=== PATIENT | male | born 1955 | race Caucasian/White ===

== ENCOUNTER → 2016-07-25 | Outpatient (CLI) | payer MEDICARE, MEDICAID ==
[~2016-07-25] MED LIST: ASPI-558 PO; FURO20TA4 PO; ISOS30TA6 PO; LINA290C PO; METO25TA6 PO; NITR0.4T PO; POTA20TA10 PO; SIMV20TA6 PO
--- NOTE | 2016-07-25 13:10 | DI ---
Indication: ITS.REASON: R07.2 Precordial pain Procedure: CHEST, PA LATERAL: Encounter: Initial Comparison: 01/04/2016, 11/18/2015 Technique: PA and lateral radiographs of the chest were obtained. Findings: Life support devices: Left pectoral dual-chamber pacer device in place. Lungs and airways: Normal lung volumes. Left greater than right basilar airspace opacities. Normal pulmonary vasculature. Pleura: Small left greater than right pleural effusions. No pneumothorax. Heart and mediastinum: Cardiomegaly. Prosthetic aortic valve. Osseous structures and soft tissues: No acute osseous abnormality is seen. Postoperative changes of median sternotomy. Degenerative arthrosis of the AC joints. Degenerative disc disease of the thoracic spine. Partially visualized postoperative changes of lumbar fusion. Impression: Small left greater than right pleural effusions with associated also left greater than right basilar relaxation atelectasis. .
== END ==
LOC: IMA 12:34
PROVIDERS: ATTEND Internal Medicine Cardiovascular Disease
DX: J90 Pleural effusion, not elsewhere classified (principal); J98.11 Atelectasis; R07.2 Precordial pain

== ENCOUNTER 2016-08-27 23:51 | Emergency (ER) | payer MEDICARE, MEDICAID ==
[~2016-08-27] VITALS: Ht 160 cm; Wt 83.0 kg
[2016-08-27 23:55] VITALS: TEMP 97.4; Ht 160 cm; Wt 83.0 kg
--- OUTSIDE RECORDS SUMMARY | 2016-08-27 23:55 | XMS REPORT | Continuity of Care Document ---
Author Author [facility] Organization [facility] Address Unknown Phone Unavailable Support Name Relationship Address Phone SAHRA JENKINS MD Caregiver [address] [place] [address] Unavailable Obdulia ANDREWS MD Caregiver [address] [place] [address] Unavailable NAGA, JEAN Next Of Kin [address] [place] [address] C Insurance Providers Guarantor Afua Archuleta Address [address] [place] [address] SG Email DENIED 16 [facility] [employer] Policy Number [id number] Subscriber's Name CenterviewArsalan geigerarin Thomas Relationship 18 Self Effective Date 16 Expiration Date 16 Payer Medicare Policy Number [id number] Subscriber's Name Afua Archuleta William Relationship 18 Self Effective Date 90 Advance Directives Directive Response Recorded Date/Time Ordered Resuscitation Status Full Code 06/18/16 9:00am Resuscitation Documents on File No 06/18/16 1:20pm DPOA for Healthcare Only No 06/18/16 1:20pm Living Will Yes 06/18/16 1:20pm Problems Active Problems Medical Problem Onset Date Status Chest pain, rule out acute myocardial infarction Unknown Acute Coronary artery disease involving autologous vein bypass graft Unknown Chronic Hypertension Unknown Chronic Mixed hyperlipidemia Unknown Chronic Patient left without being seen Unknown Acute Precordial chest pain Unknown Acute Presence of permanent cardiac pacemaker Unknown Chronic Surgical Problem Onset Date Status Aortic valve replaced Unknown Chronic Medications Current Home Medications Medication Dose Units Route Directions Days Qty Instructions Start Date Aspirin (Aspir 81) 81 Mg Tablet. 81 Mg Oral Daily 08/10/13 Furosemide 20 Mg Tablet 1 Tab Oral Twice A Day 06/18/16 Isosorbide Mononitrate (Isosorbide Mononitrate Er) 30 Mg Tab.er.24h 30 Mg Oral Daily 12/13/14 Linaclotide (Linzess) 290 Mcg Capsule 290 Mcg Oral Before Breakfast 10/07/14 Metoprolol Tartrate 25 Mg Tablet 25 Mg Oral Twice A Day 11/20/14 Nitroglycerin (Nitrostat) 0.4 Mg Tablet 0.4 Mg Oral Every 5 Minutes X 3 12/13/14 Potassium Chloride (Klor-Con M20) 20 Meq Tablet 1 Tab Oral Daily 06/18/16 Simvastatin 20 Mg Tablet 20 Mg Oral Daily 11/20/14 Past Home Medications Medication Directions Ordered Status Bp Med , 01/04/13 Discontinued Cholesterol Med , 01/04/13 Discontinued Lortab , 01/04/13 Discontinued Social History Social History Problem Response Recorded Date/Time Onset Date Status Reason for Hospitalization heart cath 06/18/2016 6:52pm Not Applicable Not Applicable Chewing Tobacco Status Yes 08/10/2013 11:19am Not Applicable Not Applicable Hx Substance Use No 06/18/2016 1:23pm Not Applicable Not Applicable Hx Alcohol Use N RECOVERING ALCOHOLIC 06/18/2016 1:23pm Not Applicable Not Applicable Has the pt used tobacco in the last 12 months No 06/18/2016 1:23pm Not Applicable Not Applicable Tobacco Usage none 11/28/2015 1:09pm Not Applicable Not Applicable Query Response Start Date Stop Date Smoking Status Never smoker Hospital Discharge Instructions Instructions: Care Instructions: I was in the hospital because (patient own words): "HEART CATH" Discharge Diet: Resume heart healthy diet Discharge Activity: Limit activity for 2 days. No lifting more than 10 pounds, no pushing or pulling for 1 week. Follow Up Appointments: Follow up with Dr. Jenkins on: 07/12/16 at 1:50 Pending Lab / Results: No Pending Lab Patient Instructions: Do not drive, operate machinery or drink alcohol for 2 days. New prescriptions: Expected Signs/Symptoms: brusing and tenderness at site Notify Physician If: Site is bleeding, abnormal drainage, increased pain or fever of 101.5 or more. During Business Hours:: Please call the physician's office at [phone] After Business Hours:: Please call [phone] and have the aegis console operator track page the physician. Pain Management/Treatment: OTC pain medications if needed Pain Scale Utilized to Educate Patient: 0-10 Pain Scale Wound/Incision Care: Keep site clean and dry. No tub baths or swimming for 1 week. You may shower. Condition at time of discharge: Good Plan of Care Discharge Date 06/18/16 8:42pm Instructions/Education Provided [facility] [place] Prescriptions See Medication Section Functional Status Query Response Date Recorded Mobility Status Ambulatory June 18, 2016 1:36pm Assistive Devices None June 18, 2016 1:36pm Activity Limitations None June 18, 2016 1:36pm Feeding Ability Independent June 18, 2016 1:36pm Toileting Ability Independent June 18, 2016 1:36pm Grooming Ability Independent June 18, 2016 1:36pm Dressing Ability Independent June 18, 2016 1:36pm Driving Ability Independent June 18, 2016 1:36pm Housework Ability Independent June 18, 2016 1:36pm Meal Preparation Ability Independent June 18, 2016 1:36pm Stair Climbing Ability Independent June 18, 2016 1:36pm Ability to complete ADL's impeded by No change June 18, 2016 1:36pm Cognitive/Perceptual Impairments Impaired vision June 18, 2016 1:36pm Visual Assistive Devices Glasses June 18, 2016 1:36pm Preferred Method of Learning Reading Listening Hands on June 18, 2016 1:36pm Allergies, Adverse Reactions, Alerts Allergen Type Severity Reaction Status Last Updated Morphine Adverse Reaction Unknown nauseated Active 06/18/16 Immunizations Query Response on File Recorded Date/Time Hx Influenza Vaccination Y 201506/18/16 1:23pm Hx Pneumococcal Vaccination Y 201506/18/16 1:23pm Hx Influenza Vaccination Y 201506/18/16 1:23pm DTaP Vaccine History UNK 11/18/15 12:11pm Influenza Vaccine Hx 06/18/16 1:39pm Vital Signs Acute Vital Signs Vital Response Date/Time Temperature (Fahrenheit) 98.4 deg F (96.8 - 99.1) 06/18/2016 8:24pm Temperature (Calculated Celsius) 36.04247 degrees C (36.0 - 37.3) 06/18/2016 8:24pm Temperature Source Oral 06/18/2016 8:24pm Pulse Rate (adult) 71 bpm (60 - 100) 06/18/2016 8:24pm Respiratory Rate 16 breaths/min (10 - 20) 06/18/2016 8:24pm O2 Sat by Pulse Oximetry 98 % (90 - 100) 06/18/2016 8:24pm Oxygen Delivery Method Room Air 06/18/2016 8:24pm Oxygen Delivery Method Room Air 06/18/2016 1:36pm Blood Pressure 142/86 mm Hg 06/18/2016 8:24pm Blood Pressure Source Automatic Cuff 06/18/2016 8:24pm Height (Feet) 5 feet 06/18/2016 1:16pm Height (Inches) 3.00 inches 06/18/2016 1:16pm Weight (Kilograms) 85.200 kg 06/18/2016 1:16pm Body Mass Index (BMI) 33.3 06/18/2016 1:16pm Results Laboratory Results Test Name Result Units Flags Reference Collection Date/Time Result Date/ Time Comments White Blood Count 4.6 T/MM3 4.5-11.0 06/18/2016 1:30pm 06/18/2016 1: 37pm Red Blood Count 5.18 M/MM3 4.50-5.90 06/18/2016 1:30pm 06/18/2016 1: 37pm Hemoglobin 16.0 GM/DL 13.5-17.5 06/18/2016 1:30pm 06/18/2016 1:37pm Hematocrit 47.1 % 41-53 06/18/2016 1:30pm 06/18/2016 1:37pm Mean Corpuscular Volume 90.9 UM3 80-100 06/18/2016 1:30pm 06/18/2016 1: 37pm Mean Corpuscular Hemoglobin 30.9 UUG 26-34 06/18/2016 1:30pm 2016 1:37pm Mean Corpuscular Hemoglobin Concent 34.0 GM/DL 31-37 06/18/2016 1:30pm 06/18/2016 1:37pm RDW Standard Deviation 40.8 FL 36.9-50.2 06/18/2016 1:30pm 06/18/2016 1 :37pm Platelet Count 121 T/MM3 L 130-400 06/18/2016 1:30pm 06/18/2016 1:37pm Mean Platelet Volume 9.4 UM3 9.4-12.4 06/18/2016 1:30pm 06/18/2016 1: 37pm Neutrophils (%) (Auto) 53.0 % 33-66 06/18/2016 1:30pm 06/18/2016 1: 37pm Lymphocytes (%) (Auto) 33.4 % 23-45 06/18/2016 1:30pm 06/18/2016 1: 37pm Monocytes (%) (Auto) 7.9 % 0-9.0 06/18/2016 1:30pm 06/18/2016 1:37pm Eosinophils (%) (Auto) 4.4 % H 0-4 06/18/2016 1:30pm 06/18/2016 1:37pm Basophils (%) (Auto) 1.1 % 0-2 06/18/2016 1:30pm 06/18/2016 1:37pm Immature Granulocyte % (Auto) 0.2 % 0.0-0.5 06/18/2016 1:30pm 2016 1:37pm Absolute Neutrophils (auto) 2.4 T/MM3 1.8-7.7 06/18/2016 1:30pm 2016 1:37pm Absolute Lymphocytes (auto) 1.5 T/MM3 1-4.8 06/18/2016 1:30pm 2016 1:37pm Absolute Monocytes (auto) 0.4 T/MM3 0-0.8 06/18/2016 1:30pm 06/18/2016 1:37pm Absolute Eosinophils (auto) 0.2 T/MM3 0-0.5 06/18/2016 1:30pm 2016 1:37pm Absolute Basophils (auto) 0.1 T/MM3 0-0.2 06/18/2016 1:30pm 06/18/2016 1:37pm Absolute Immature Granulocyte (auto 0.01 T/MM3 0.00-0.03 06/18/2016 1: 30pm 06/18/2016 1:37pm Icterus Index < 2 0-7 06/18/2016 1:30pm 06/18/2016 1:47pm Chemistry Specimen Hemolysis < 15 0-25 06/18/2016 1:30pm 06/18/2016 1 :47pm 0-25: Specimen Exhibited No Hemolysis. Turbidity < 20 0-20 06/18/2016 1:30pm 06/18/2016 1:47pm Sodium Level 139 MEQ/L 134-144 06/18/2016 1:30pm 06/18/2016 1:47pm Potassium Level 4.1 MEQ/L 3.6-5 06/18/2016 1:30pm 06/18/2016 1:47pm Chloride Level 105 MEQ/L 98-107 06/18/2016 1:30pm 06/18/2016 1:47pm Carbon Dioxide Level 24 MEQ/L 22-30 06/18/2016 1:30pm 06/18/2016 1: 47pm Anion Gap 10 MEQ/L 5-15 06/18/2016 1:30pm 06/18/2016 1:47pm Blood Urea Nitrogen 15.0 MG/DL 9-20 06/18/2016 1:30pm 06/18/2016 1: 47pm Creatinine 0.8 MG/DL 0.8-1.5 06/18/2016 1:30pm 06/18/2016 1:47pm BUN/Creatinine Ratio 19 RATIO 6-26 06/18/2016 1:30pm 06/18/2016 1:47pm Glomerular Filtration Rate Calc 99 06/18/2016 1:30pm 06/18/2016 1: 47pm Glucose Level 90 MG/DL 75-110 06/18/2016 1:30pm 06/18/2016 1:47pm Calculated Osmolality 269 MOSM/KG 261-280 06/18/2016 1:30pm 06/18/2016 1:47pm Calcium Level 9.4 MG/DL 8.4-10.2 06/18/2016 1:30pm 06/18/2016 1:47pm Arterial Blood pH 7.367 7.350-7.450 06/18/2016 5:05pm 06/18/2016 5: 10pm Arterial Blood Partial Pressure CO2 40 MMHG 34-45 06/18/2016 5:05pm 10/2016 5:10pm Arterial Blood pO2 at Patient Temp 73 MMHG L 80-100 06/18/2016 5:05pm 5:10pm Arterial Blood HCO3 23 MEQ/L 22-26 06/18/2016 5:05pm 06/18/2016 5:10pm Arterial Blood Total CO2 24 MEQ/L 23-27 06/18/2016 5:05pm 06/18/2016 5: 10pm Arterial Blood Base Excess -2.0 MMOL/L -2.0-2.0 06/18/2016 5:05pm 06/18 5:10pm Arterial Blood Oxygen Saturation 94.0 % L 95.0-98.0 06/18/2016 5:05pm 5:10pm Venous Blood pH 7.336 7.31-7.41 06/18/2016 5:05pm 06/18/2016 5:10pm Venous Blood Partial Pressure CO2 46.3 MMHG 40-52 06/18/2016 5:05pm 10/2016 5:10pm Venous Blood Partial Pressure O2 37 MMHG L 40-52 06/18/2016 5:05pm 06/18 5:10pm Venous Blood HCO3 25 MEQ/L 22-26 06/18/2016 5:05pm 06/18/2016 5:10pm Venous Blood Total Carbon Dioxide 26 MEQ/L 06/18/2016 5:05pm 2016 5:10pm Venous Blood Base Excess -1.0 MMOL/L -2.0-2.0 06/18/2016 5:05pm 2016 5:10pm Venous Blood Oxygen Saturation 67.0 % 06/18/2016 5:05pm 06/18/2016 5: 10pm Procedures No known history of procedures. Encounters Encounter Location Arrival/Admit Date Discharge/Depart Date Attending Provider Departed [facility] 06/18/16 1:06pm 06/18/16 8:42pm SAHRA JENKINS MD
--- OUTSIDE RECORDS SUMMARY | 2016-08-27 23:55 | XMS REPORT | Summary of Care ---
Author Organization Unknown Address Unknown Phone Unavailable Care Team Providers Care Mill Operator Name Role Phone Mimi Paul, Foster Unavailable Unavailable Radha Cotto M.D. 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: Active Back Pain Status: Active Heart Rate Is Slow Status: Active Diarrhea (787.91, R19.7) Status: Active Abdominal pain (789.00, R10.9) Status: Active Abdominal pain, epigastric (789.06, R10.13) Status: Active Dysuria (788.1, R30.0) Status: Active Fainting (780.2, R55) Status: Active Reflux esophagitis (530.11, K21.0) Status: Active Hypogonadism, male (257.2, E29.1) Status: Active Allergic rhinitis (477.9, J30.9) Status: Active Hypertension (401.9, I10) Status: Active Sinus bradycardia (427.89, R00.1) Status: Active Atypical chest pain (786.59, R07.89) Status: Active Gastritis, Helicobacter pylori (535.10, B96.81) Status: Active Cholecystitis (575.10, K81.9) Status: Active Gastroparesis (536.3, K31.84) Status: Active Bipolar disorder (296.80, F31.9) Status: Active Encounter for screening for malignant neoplasm of colon (V76.51, Z12.11) Status: Active Hepatitis B carrier (V02.61, Z22.51) Status: Active Constipation (564.00, K59.00) Status: Active Cervical radiculopathy (723.4, M54.12) Status: Active Bloating (787.3, R14.0) Status: Active Abnormal liver function test (790.6, R79.89) Status: Active Medications Name Dates Details Hydrocodone-Acetaminophen 10-500 MG TABS TAKE 1 TABLET BY MOUTH EVERY 4 HOURS NEEDED FOR PAIN.*MAX 6 PER DAYMAY FILL ON OR AFTER 11/19/12* Quantity: 180 Foster Le M.D.* Started 11-Dec-2010 ActiveFerrous Sulfate 325 (65 Fe) MG Oral Tablet Take 1 tablet twice daily * Quantity: 30 Refills: 0 Foster Le M.D.* Started 08-Jan-2011 ActiveAspir-81 81 MG Oral Tablet Delayed Release TAKE 1 TABLET EVERY DAY * Quantity: 30 Refills: 0 Foster Le M.D.* Started 08-Jan-2011 ActiveLisinopril 10 MG Oral Tablet TAKE 1 TABLET DAILY. * Quantity: 30 Refills: 0 Foster Le M.D.* Started 30-Mar-2011 ActiveEscitalopram Oxalate 10 MG Oral Tablet TAKE 1 TABLET DAILY. * Quantity: 30 Refills: 0 Foster Le M.D.* Started 30-Mar-2011 ActiveFenofibrate 160 MG Oral Tablet TAKE ONE TABLET BY MOUTH AT BEDTIME * Quantity: 30 Refills: 0 Foster Le M.D.* Started 28-May-2011 ActiveIsosorbide Mononitrate ER 30 MG Oral Tablet Extended Release 24 Hour TAKE 1 TABLET ONCE DAILY. * Quantity: 30 Refills: 0 Foster Le M.D.* Started 28-May-2011 ActiveOxyCONTIN 30 MG TB12 TAKE 1 BY MOUTH EVERY 12 HOURS.*MUST LAST 30 DAYSMAY FILL ON OR AFTER 11/28/12* * Quantity: 60 Refills: 0 Foster Le M.D.* Started ActiveMetoprolol Succinate ER 50 MG Oral Tablet Extended Release 24 Hour Take 1 tablet daily * Quantity: 30 Refills: 0 Foster Le M.D.* Started 07-Apr-2012 ActiveMetoclopramide HCl - 10 MG Oral Tablet TAKE 1 TABLET 30 MINUTES BEFORE MEALS AND AT BEDTIME. * Quantity: 120 Refills: 0 Radha Cotto M.D.* Started 30-Sep-2012 Active Allergies and Adverse Reactions Name Dates Details Morphine Derivatives Status: Active Procedures Procedure Dates Details History of Tonsillectomy History of Hernia Repair History of Shoulder Surgery History of Surgery Vas Deferens Vasectomy History of Back Surgery History of Complete Colonoscopy History of Heart Catheterization - Left Completed:02-Aug-2010 History of Gastroscopy With Biopsy Completed:10-Jan-2011 History of Complete Colonoscopy Completed:23-Jan-2011 History of ERCP With Insertion Of Tube Into Bile / Pancreatic Duct Completed:30-Jan-2011 History of ERCP With Endoscopic Sphincterotomy Completed:30-Jan-2011 History of ERCP With Balloon Dilation Of Ampulla/Biliary/Pancr Duct(S) Completed:30-Jan-2011 History of Laparoscopic Cholecystectomy With Cholangiography Completed:Jan-2011 History of Colonoscopy For Forceps Biopsy Completed:26-Mar-2012 History of Gastroscopy With Biopsy Completed:28-Mar-2012 Procedures not documented Immunization Name Dates Details Influenza Lot #: [id number] Administered on:04-Feb-2012 Pneumo (Pneumovax) Lot #: [id number] Administered on:04-Feb-2012 Family History Unknown Family Member* Name Dates Details Family history of Diabetes Mellitus (V18.0) Comments: Family History Status: Active Family history of Hypertension (V17.49) Comments: Family History Status: Active Family history of Stroke Syndrome (V17.1) Comments: Family History Status: Active Family history of Acute Myocardial Infarction (V17.3) Comments: Family History Status: Active Family history of Reported Family History Of Kidney Disease Comments: Family History Status: Active Family history of Epilepsy Comments: Family History Status: Active Family history of Prostate Cancer (V16.42) Comments: Family History Status: Active Family history of Reported Family History Of Alcoholism Comments: Family History Status: Active Social History Smoking Status* Unknown if ever smoked Vital Signs Date Test Result Details No Known Vitals to report Results Date Description Value Details Results not documented Plan of Care Planned Observations* Name Dates Details Planned Goals not documented Goal Planned Encounters* Appointment; Provider: Miller Sosa On 07-Feb-2011 07:30 * Appointment; Provider: Mayur Rizzo On 02-Aug-2010 11:00 Instructions * Instructions not documented Encounters Appointment; Foster Le Encounter Diagnosis: Problem not documented On 09:45 Appointment; Diego Perez Encounter Diagnosis: Problem not documented On 10:30 Appointment; Foster Le Encounter Diagnosis: Problem not documented On 12:15 Appointment; Radha Cotto Encounter Diagnosis: Problem not documented On 24-Sep-2012 08:45 Appointment; Foster Le Encounter Diagnosis: Problem not documented On 22-Sep-2012 09:45 Appointment; Foster Le Encounter Diagnosis: Problem not documented On 25-Aug-2012 12:15
--- OUTSIDE RECORDS SUMMARY | 2016-08-27 23:55 | XMS REPORT | Referral Summary ---
Author Author [facility] Organization [facility] Address Unknown Phone Unavailable Care Team Providers Care Mint Wafer Depositor Name Role Phone Beto Magdiel Primary Care Physician [phone] Encounter VC Date(s): 06/26/16 - 06/26/16 [facility] [address] [place] [address] [phone] Discharge Disposition: 01-Home or Self Care Attending Physician: Bi Rizvi MD Vital Signs Most recent to 1 oldest [Reference Range]: Temperature Oral 36.4 degC [35.8-37.3 degC] (06/26/16 8:28 AM) Peripheral Pulse 61 bpm Rate [60-100 bpm] (06/26/16 8:28 AM) Respiratory Rate 18 br/min [14-20 br/min] (06/26/16 8:28 AM) Blood Pressure 147/79 mmHg [90-140/60-90 mmHg] *HI* (06/26/16 8:28 AM) SpO2 97 % (06/26/16 8:28 AM) Problem List Condition Effective Dates Status Health Status Informant ETOH Active abuse(Confirmed) Anxiety(Confirmed) Active CAD (coronary artery Active disease)(Confirmed) Diverticulosis(Confi Active rmed) Hemorrhoids(Confirme Active d) Liver Active disease(Confirmed) Hypercholesteremia(C Active onfirmed) Hypertension(Confirm Active ed) Arthritis(Confirmed) Active Depression(Confirmed Active ) Obesity(Confirmed) Active patient Allergies, Adverse Reactions, Alerts Substance Reaction Severity Status morphine nausea Medium Active Medications aspirin 81 mg oral tablet 81 mg 1 tabs, Oral, Daily, 0 Refill(s) Start Date: 04/03/16 Status: Ordered isosorbide dinitrate 30 mg oral tablet 30 mg 1 tabs, Oral, Daily, 0 Refill(s) Start Date: 04/03/16 Status: Ordered Lasix 40 mg oral tablet 40 mg 1 tabs, Oral, Daily, 0 Refill(s) Start Date: 04/03/16 Status: Ordered Linzess 145 mcg, Oral, Daily, 0 Refill(s) Start Date: 04/03/16 Status: Ordered metoprolol tartrate 25 mg oral tablet 25 mg 1 tabs, Oral, BID, 0 Refill(s) Start Date: 04/03/16 Status: Ordered potassium chloride 20 mEq oral tablet, extended release 20 mEq 1 tabs, Oral, Daily, 0 Refill(s) Start Date: 04/03/16 Status: Ordered simvastatin 20 mg oral tablet 20 mg 1 tabs, Oral, Daily, 0 Refill(s) Start Date: 04/03/16 Status: Ordered Results No data available for this section Immunizations Given and Recorded Vaccine Date Status Refusal Reason tetanus-diphth toxoids (Td) adult/adol 11/19/05 Given tetanus-diphth toxoids (Td) adult/adol 03/03/04 Given Procedures Procedure Date Related Diagnosis Body Site CABG x 1 - Coronary artery bypass graft x 11 10/30/15 AVR - Aortic valve replacement 10/29/14 Cardiac catheterization 2014 Cardiac pacemaker 08/10/[address] Se [place] Social History Social History Type Response Smoking Status Never smoker Assessment and Plan Extracted from: Title: Office Visit Note Author: Bi Rizvi MD Date: 06/26/16 Assessment/Plan 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 mean is around 28 consistent with significant dysfunction. STS is 2% only. 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 Unlikely coumadin will help at almost two years after. will need his valve replaced. Due to his age and STS, unlikely TAVR is best choice. Likely better served with SAVR. Will have him seen by CTS.
--- OUTSIDE RECORDS SUMMARY | 2016-08-27 23:55 | XMS REPORT | Continuity of Care Document ---
Author Author [facility] Organization [facility] Address Unknown Phone Unavailable Support Name Relationship Address Phone SHARA JENKINS MD Caregiver [address] [place] [address] [place] [address] Unavailable SAHRA JENKINS MD Caregiver [address] [place] [address] [place] [address] Unavailable Obdulia ANDREWS MD Caregiver [address] [place] [address] Unavailable JOSLYN RUEDA MD Caregiver [address] [place] [address] [place] [address] Unavailable JEAN NIELSON Next Of Kin [address] [place] [address] Insurance Providers Guarantor KatheArsalanAfua L Address [address] [place] [address] Email DENIED/NO TO PORTAL Payer [facility] [employer] Policy Number [id number] Subscriber's Name Afua Archuleta Relationship 18 Self Effective Date 15 Expiration Date 15 Payer Medicare Policy Number [id number] Subscriber's Name Afua Archuleta Relationship 18 Self Effective Date 90 Advance Directives Directive Response Recorded Date/Time Advanced Directives Type None 11/18/15 11:15am Dr Benjamin Resuscitation Status Full Code, unverified 11/18/15 12:20pm Resuscitation Documents on File No 11/18/15 1:37pm DPOA for Healthcare Only Yes 11/18/15 1:37pm Problems Active Problems Medical Problem Onset Date Status Coronary artery disease involving autologous vein bypass [...] Mg Tablet. 81 Mg Oral Daily 08/10/13 Isosorbide Mononitrate (Isosorbide Mononitrate Er) 30 Mg Tab.er.24h 30 Mg Oral Daily 12/13/14 Linaclotide (Linzess) 290 Mcg Capsule 290 Mcg Oral Before Breakfast 10/07/14 Metoprolol Tartrate 25 Mg Tablet 25 Mg Oral Twice A Day 11/20/14 Nitroglycerin (Nitrostat) 0.4 Mg Tablet 0.4 Mg Oral Every 5 Minutes X 3 12/13/14 Simethicone 125 Mg Capsule 125 Mg Oral Four Times Daily as needed for Prn Orders 10/07/14 Simvastatin 20 Mg Tablet 20 Mg Oral Daily 11/20/14 Tamsulosin Hcl 0.4 Mg Cap.er.24h 0.4 Mg Oral Daily 11/18/15 Past Home Medications Medication Directions Ordered Status Bp Med , 01/04/13 Discontinued Cholesterol Med , 01/04/13 Discontinued Lortab , 01/04/13 Discontinued Social History Social History Problem Response Recorded Date/Time Onset Date Status Chewing Tobacco Status Yes 08/10/2013 11:19am Not Applicable Not Applicable Hx Substance Use No 11/18/2015 12:11pm Not Applicable Not Applicable Hx Alcohol Use N RECOVERING ALCOHOLIC 11/18/2015 12:11pm Not Applicable Not Applicable Has the pt used tobacco in the last 12 months No 11/18/2015 1:33pm Not Applicable Not Applicable Query Response Start Date Stop Date Smoking Status Never smoker Hospital Discharge Instructions No hospital discharge instructions. Plan of Care Discharge Date 11/18/15 6:23pm Disposition 07 AGAINST MEDICAL ADVICE Prescriptions See Medication Section Functional Status Query Response Date Recorded Mobility Status Ambulatory November 18, 2015 1:29pm Assistive Devices None November 18, 2015 1:29pm Activity Limitations Shortness of breath Dizziness Pain November 18, 2015 1:29pm Feeding Ability Independent November 18, 2015 1:29pm Toileting Ability Independent November 18, 2015 1:29pm Grooming Ability Independent November 18, 2015 1:29pm Dressing Ability Independent November 18, 2015 1:29pm Driving Ability Independent November 18, 2015 1:29pm Housework Ability Independent November 18, 2015 1:29pm Meal Preparation Ability Independent November 18, 2015 1:29pm Stair Climbing Ability Independent November 18, 2015 1:29pm Ability to complete ADL's impeded by No change November 18, 2015 1:37pm Cognitive/Perceptual Impairments Impaired vision November 18, 2015 1:29pm Visual Assistive Devices Glasses November 18, 2015 1:29pm Allergies, Adverse Reactions, Alerts Allergen Type Severity Reaction Status Last Updated Morphine Adverse Reaction Unknown nauseated Active 11/18/15 Immunizations Query Response on File Recorded Date/Time Hx Influenza Vaccination Y FEB 2014 11/18/15 1:33pm Hx Pneumococcal Vaccination N UNSURE WHEN LAST VACCINE WAS. 11/18/15 1:33pm Hx Influenza Vaccination Y FEB 2014 11/18/15 1:33pm DTaP Vaccine History UNK 11/18/15 12:11pm Influenza Vaccine Hx NOT REC'D 11/18/15 12:11pm Vital Signs Acute Vital Signs Vital Response Date/Time Temperature (Fahrenheit) 97.6 deg F (96.8 - 99.1) 11/18/2015 4:16pm Temperature (Calculated Celsius) 36.91564 degrees C (36.0 - 37.3) 11/18/2015 4:16pm Pulse Rate (adult) 60 bpm (60 - 100) 11/18/2015 4:16pm Respiratory Rate 18 breaths/min (10 - 20) 11/18/2015 4:16pm O2 Sat by Pulse Oximetry 98 % (90 - 100) 11/18/2015 4:16pm Oxygen Delivery Method Room Air 11/18/2015 4:16pm Blood Pressure 136/78 mm Hg 11/18/2015 4:16pm Blood Pressure Source Automatic Cuff 11/18/2015 4:16pm Height (Feet) 5 feet 11/18/2015 2:12pm Height (Inches) 3.00 inches 11/18/2015 2:12pm Weight (Kilograms) 84.100 kg 11/18/2015 1:31pm Body Mass Index (BMI) 32.8 11/18/2015 1:31pm Results Laboratory Results Test Name Result Units Flags Reference Collection Date/Time Result Date/ Time Comments White Blood Count 5.6 T/MM3 4.5-11.0 11/18/2015 11:25am 11/18/2015 11: 45am Red Blood Count 4.66 M/MM3 4.50-5.90 11/18/2015 11:25am 11/18/2015 11: 45am Hemoglobin 14.3 GM/DL 13.5-17.5 11/18/2015 11:25am 11/18/2015 11:45am Hematocrit 43.1 % 41-53 11/18/2015 11:11/18/2015 11:45am Mean Corpuscular Volume 92.5 UM3 80-100 11/18/2015 11:11/18/2015 11:45am Mean Corpuscular Hemoglobin 30.7 UUG 26-34 11/18/2015 11:2015 11:45am Mean Corpuscular Hemoglobin Concent 33.2 GM/DL 31-37 11/18/2015 11:11/18/2015 11:45am RDW Standard Deviation 46.1 FL 36.9-50.2 11/18/2015 11:11/18/2015 11:45am Platelet Count 139 T/MM3 130-400 11/18/2015 11:11/18/2015 11:45am Mean Platelet Volume 9.6 UM3 9.4-12.4 11/18/2015 11:11/18/2015 11: 45am Neutrophils (%) (Auto) 62.1 % 33-66 11/18/2015 11:11/18/2015 11: 45am Lymphocytes (%) (Auto) 25.2 % 23-45 11/18/2015 11:11/18/2015 11: 45am Monocytes (%) (Auto) 8.2 % 0-9.0 11/18/2015 11:11/18/2015 11:45am Eosinophils (%) (Auto) 3.4 % 0-4 11/18/2015 11:11/18/2015 11:45am Basophils (%) (Auto) 0.9 % 0-2 11/18/2015 11:11/18/2015 11:45am Immature Granulocyte % (Auto) 0.2 % 0.0-0.5 11/18/2015 11:2015 11:45am Absolute Neutrophils (auto) 3.5 T/MM3 1.8-7.7 11/18/2015 11:2015 11:45am Absolute Lymphocytes (auto) 1.4 T/MM3 1-4.8 11/18/2015 11:2015 11:45am Absolute Monocytes (auto) 0.5 T/MM3 0-0.8 11/18/2015 11:2015 11:45am Absolute Eosinophils (auto) 0.2 T/MM3 0-0.5 11/18/2015 11:252015 11:45am Absolute Basophils (auto) 0.1 T/MM3 0-0.2 11/18/2015 11:2015 11:45am Absolute Immature Granulocyte (auto 0.01 T/MM3 0.00-0.03 11/18/2015 11: 11/18/2015 11:45am Prothromb Time International Ratio 1.05 0.99-1.21 11/18/2015 11:2511/18/2015 11:50am THERAPUTIC RANGE=2.00-3.00 FOR ANTI-THROMBOSIS THERAPUTIC RANGE=2.50-3.50 FOR IMPLANTED VALVE Icterus Index < 2 0-7 11/18/2015 11:11/18/2015 11:55am Chemistry Specimen Hemolysis < 15 0-25 11/18/2015 4:56pm 11/18/2015 5 :40pm 0-25: Specimen Exhibited No Hemolysis. Turbidity < 20 0-20 11/18/2015 11:11/18/2015 11:55am Sodium Level 139 MEQ/L 134-144 11/18/2015 11:11/18/2015 11:55am Potassium Level 4.3 MEQ/L 3.6-5 11/18/2015 11:11/18/2015 11:55am Chloride Level 107 MEQ/L 98-107 11/18/2015 11:11/18/2015 11:55am Carbon Dioxide Level 25 MEQ/L 22-30 11/18/2015 11:11/18/2015 11: 55am Anion Gap 7 MEQ/L 5-15 11/18/2015 11:11/18/2015 11:55am Blood Urea Nitrogen 16.0 MG/DL 9-11/18/2015 11:11/18/2015 11: 55am Creatinine 0.7 MG/DL L 0.8-1.5 11/18/2015 11:11/18/2015 11:55am BUN/Creatinine Ratio 23 RATIO 6-26 11/18/2015 11:11/18/2015 11: 55am Glomerular Filtration Rate Calc 115 11/18/2015 11:11/18/2015 11:55am Glucose Level 81 MG/DL 75-110 11/18/2015 11:25am 11/18/2015 11:55am Calculated Osmolality 268 MOSM/KG 261-280 11/18/2015 11:25am 2015 11:55am Calcium Level 9.2 MG/DL 8.4-10.2 11/18/2015 11:25am 11/18/2015 11:55am Troponin I < 0.012 ng/ml 0-0.12 11/18/2015 4:56pm 11/18/2015 5:40pm Troponin values with a difference of 55% increase from orginal troponin value represent a true biological DELTA value. (%increase Calc=Orginal Troponin value, divided by subsequent Troponin value, multiplied by 100) WU-Sex-S-Type Natriuretic Peptide 170 PG/ML 0-175 11/18/2015 11:25am 12:07pm Rule in cut points: <50 years old=450; 50-75 years old=900; >75 years old=1800; When utilizing ProBNP rule-in cut points, adjustment for impaired renal function is typically not required. Magnesium Level 2.0 MG/DL 1.6-2.3 11/18/2015 11:25am 11/18/2015 11: 55am Thyroid Stimulating Hormone (TSH) 1.23 MIU/L 0.47-4.68 11/18/2015 11: 41am 11/18/2015 3:29pm Name: AFUA ARCHULETA Unit #: [id number] : 1955 Sex: M Admit Date: Loc / Svc: ED Discharge Date: DIAGNOSTIC IMAGING REPORT Report #: [id number] [facility] AMALIA [place] Indication: ITS.REASON: Right chest pain radiating to the neck for several weeks PROCEDURE: CHEST 1 VIEW: Encounter: Initial Comparison: August 11, 2013 Findings: The lungs are stable in appearance without new focal airspace consolidation. Interval sternotomy. Left cardiac pacemaker remains in place with right atrial and right ventricular leads. There is no pleural effusion or pneumothorax. The heart size, pulmonary vascularity and mediastinal contours are unchanged. IMPRESSION: Interval sternotomy, otherwise stable appearance of the chest without acute cardiopulmonary disease. . Procedures No known history of procedures. Encounters Encounter Location Arrival/Admit Date Discharge/Depart Date Attending Provider Admitted Inpatient (obs) [facility] 11/18/15 12:20pm SAHRA JENKINS MD
--- OUTSIDE RECORDS SUMMARY | 2016-08-27 23:55 | XMS REPORT | Continuity of Care Document ---
Author Author [facility] Organization [facility] Address Unknown Phone Unavailable Support Name Relationship Address Phone VALENTIN DOS SANTOS MD Caregiver [address] [place] [address] [place] [address] Obdulia ANDREWS MD Caregiver [address] [place] [place], [place] [id number] [place], JEAN Next Of Kin [address] [place], [place] [address] CP Insurance Providers Payer Name Policy Number Subscriber Name Relationship Medicare [id number] Afua Archuleta 18 Self Jomar [employer] [id number] Afua Archuleta 18 Self Problems No known problems or medical conditions. Medications Medication Dose Route Sig Days/Qty Instructions Order Date Discontinued Date Status [BP med] 01/04/13 08/10/13 Discontinued [Cholesterol med] 01/04/13 08/10/13 Discontinued [lortab] 01/04/13 08/10/13 Discontinued Aspirin 81 Mg PO 08/10/13 Active Fenofibrate,Micronized 160 Mg PO 08/10/13 Active Sennosides/Docusate Sodium 1 Each PO 08/10/13 Active Lisinopril 40 Mg PO 08/10/13 Active Hydrocodone Bit/Acetaminophen 1 Udtab PO 08/10/13 Active Hydrocodone Bit/Acetaminophen 1 Tab PO 08/10/13 Active Oxycodone Hcl 30 Mg PO 08/10/13 Active Sennosides/Docusate Sodium 1 Tab PO 08/10/13 Active Social History Social History Problem Response Recorded Date/Time Chewing Tobacco Status Yes 08/10/2013 11:19am Hx Substance Use No 08/10/2013 11:19am Hx Alcohol Use N recovering alcoholic 08/10/2013 11:19am Has the pt used tobacco in the last 12 months Yes 08/10/2013 11:19am Hospital Discharge Instructions No hospital discharge instructions. Plan of Care No plan of care. Functional Status No functional status results. Allergies, Adverse Reactions, Alerts Allergen Type Severity Reaction Status Last Updated Morphine Adverse Reaction Unknown nauseated Active 04/26/14 Immunizations Name Given Type Hx Influenza Vaccination Y FEB 2013 Historical Hx Pneumococcal Vaccination Y 2011 Historical Hx Influenza Vaccination Y FEB 2013 Historical Vital Signs Acute Vital Signs Vital Response Date/Time Temperature (Fahrenheit) 98.2 deg F (96.8 - 99.1) Temperature (Calculated Celsius) 36.19300 degrees C (36.0 - 37.3) Pulse Rate (adult) 60 bpm (60 - 100) Respiratory Rate 16 breaths/min (10 - 20) O2 Sat by Pulse Oximetry 97 % (90 - 100) Blood Pressure 147/76 mm Hg Height 5 ft 3 in Weight 184 lb Body Mass Index 32.0 kg/m^2 Results Test Source Date Result Interp. Ref. Range Comments Activated Partial Thromboplast Time January 03, 2013 10:34am 29.2 SEC N 24-36 Ordering r/o VTE Yes Alanine Aminotransferase (ALT/SGPT) January 03, 2013 10:34am 37 U/L N 21- 72 Albumin January 03, 2013 10:34am 4.5 G/DL N 3.5-5.0 Albumin/Globulin Ratio January 03, 2013 10:34am 1.9 RATIO N 1.1-2.2 Alkaline Phosphatase January 03, 2013 10:34am 49 U/L N 38-126 Anion Gap August 10, 2013 12:05pm 11 MEQ/L N 5-15 COMMENT WILL CALL WHEN PATIENT GETS HERE Aspartate Amino Transf (AST/SGOT) January 03, 2013 10:34am 23 U/L N 17- 59 BUN/Creatinine Ratio August 10, 2013 12:05pm 17 RATIO N 6-26 COMMENT WILL CALL WHEN PATIENT GETS HERE Basophils # (Auto) August 11, 2013 5:00am 0.1 T/MM3 N 0-0.2 Basophils (%) (Auto) August 11, 2013 5:00am 0.9 % N 0-2 Blood Urea Nitrogen August 10, 2013 12:05pm 15.0 MG/DL N 9-20 COMMENT WILL CALL WHEN PATIENT GETS HERE Calcium Level August 10, 2013 12:05pm 9.3 MG/DL N 8.4-10.2 COMMENT WILL CALL WHEN PATIENT GETS HERE Calculated Osmolality August 10, 2013 12:05pm 266 MOSM/KG N 261-280 COMMENT WILL CALL WHEN PATIENT GETS HERE Carbon Dioxide Level August 10, 2013 12:05pm 25 MEQ/L N 22-30 COMMENT WILL CALL WHEN PATIENT GETS HERE Chloride Level August 10, 2013 12:05pm 102 MEQ/L N 98-107 COMMENT WILL CALL WHEN PATIENT GETS HERE Creatinine August 10, 2013 12:05pm 0.9 MG/DL N 0.8-1.5 COMMENT WILL CALL WHEN PATIENT GETS HERE D-Dimer January 03, 2013 10:34am < 150 NG/ML 0-230 <224 NG/ML= PRESUMPTIVE NEGATIVE FOR PE OR DVT>224 NG/ML=ADDITIONAL EVALUATION FOR PE OR DVT RECOMMENDED Eosinophils # (Auto) August 11, 2013 5:00am 0.4 T/MM3 N 0-0.5 Eosinophils (%) (Auto) August 11, 2013 5:00am 6.4 % H 0-4 Globulin January 03, 2013 10:34am 2.4 G/DL N 2.4-3.6 Glucose Level August 10, 2013 12:05pm 85 MG/DL N 75-110 COMMENT WILL CALL WHEN PATIENT GETS HERE Hematocrit August 11, 2013 5:00am 47.2 % N 41-53 Hemoglobin August 11, 2013 5:00am 15.5 GM/DL N 13.5-17.5 Lymphocytes # (Auto) August 11, 2013 5:00am 1.5 T/MM3 N 1-4.8 Lymphocytes (%) (Auto) August 11, 2013 5:00am 22.8 % L 23-45 Magnesium Level January 03, 2013 10:34am 1.9 MG/DL N 1.6-2.3 Mean Corpuscular Hemoglobin August 11, 2013 5:00am 30.4 UUG N 26-34 Mean Corpuscular Hemoglobin Concent August 11, 2013 5:00am 32.8 GM/DL N 31-37 Mean Corpuscular Volume August 11, 2013 5:00am 92.5 UM3 N 80-100 Mean Platelet Volume August 11, 2013 5:00am 9.2 UM3 L 9.4-12.4 Monocytes # (Auto) August 11, 2013 5:00am 0.7 T/MM3 N 0-0.8 Monocytes (%) (Auto) August 11, 2013 5:00am 11.2 % H 0-9.0 Neutrophils # (Auto) August 11, 2013 5:00am 3.7 T/MM3 N 1.8-7.7 Neutrophils (%) (Auto) August 11, 2013 5:00am 58.4 % N 33-66 Platelet Count August 11, 2013 5:00am 184 T/MM3 N 130-400 Potassium Level August 10, 2013 12:05pm 4.0 MEQ/L N 3.6-5 COMMENT WILL CALL WHEN PATIENT GETS HERE Prothromb Time International Ratio January 03, 2013 10:34am 1.00 N 0.86- 1.10 THERAPUTIC RANGE=2.00-3.00 FOR ANTI-THROMBOSIS THERAPUTIC RANGE=2.50- 3.50 FOR IMPLANTED VALVE RDW Standard Deviation August 11, 2013 5:00am 42.5 FL N 36.9-50.2 Red Blood Count August 11, 2013 5:00am 5.10 M/MM3 N 4.50-5.90 Sodium Level August 10, 2013 12:05pm 138 MEQ/L N 134-144 COMMENT WILL CALL WHEN PATIENT GETS HERE Total Bilirubin January 03, 2013 10:34am 0.80 MG/DL N 0.20-1.30 Total Protein January 03, 2013 10:34am 6.9 G/DL N 6.3-8.2 Troponin I January 03, 2013 10:34am < 0.012 ng/ml 0-0.12 White Blood Count August 11, 2013 5:00am 6.4 T/MM3 N 4.5-11.0 Chemistry Specimen Hemolysis August 10, 2013 12:05pm < 15 0-25 0-25: No Hemolysis.26-70: Slight Hemolysis - can falsely elevate K and Urine Protein. 71-285: Moderate Hemolysis - can falsely elevate K, Troponin I, CA 19-9, PTH, CSF GLucose, and Urine Protein, and can falsely decrease Phenytoin. 286-999: Gross Hemolysis - can falsely elevate K, Troponin I, CA 19-9, PTH, CSF Glucose, and Urine Protine, and can falsely decrease Phenytoin. Recommend specimen recollection. Turbidity August 10, 2013 12:05pm < 20 0-20 COMMENT WILL CALL WHEN PATIENT GETS HERE Glomerular Filtration Rate Calc August 10, 2013 12:05pm 87 - COMMENT WILL CALL WHEN PATIENT GETS HERE Immature Granulocyte # (Auto) August 11, 2013 5:00am 0.02 T/MM3 N 0.00- 0.03 Immature Granulocyte % (Auto) August 11, 2013 5:00am 0.3 % N 0.0-0.5 Icterus Index August 10, 2013 12:05pm < 2 0-7 COMMENT WILL CALL WHEN PATIENT GETS HERE NU-Tvd-S-Type Natriuretic Peptide January 03, 2013 10:34am 21 PG/ML N 0- 175 Rule in cut points: <50 years old=450; 50-75 years old=900; >75 years old=1800; When utilizing ProBNP rule-in cut points, adjustment for impaired renal function is typically not required. Procedures No known history of procedures. Encounters Encounter Location Date/Time Departed Emergency Room [facility] 04/26/14 7:49pm Recent Diagnosis
--- OUTSIDE RECORDS SUMMARY | 2016-08-27 23:57 | XMS REPORT ---
Author Author Diego Perez Organization Unknown Address [address] [place], [place] [id number] Phone Care Team Providers [facility] [place] Mail [facility]rier Name Role Phone Mimi Hutchison PP Unavailable Unavailable Reason for Referral No Reason for Referral was given. History of Present Illness No HPI available. 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 Pylori (535.50); (Active) * Fainting (Syncope) (780.2); (Active) * Atypical Chest Pain (786.59); (Active) * Sinus Bradycardia (427.89); (Active) * Heart Rate Is Slow (Active) * Diarrhea (Symptom) (787.91); (Active) * Hypogonadism (257.2); (Active) * Constipation (564.00); (Active) * Pain During Urination (Dysuria) (788.1); (Active) * Gastroparesis (536.3); (Active) Medication * Hydrocodone-Acetaminophen 10-500 MG Oral Tablet; TAKE 1 TABLET BY MOUTH EVERY 4 HOURS NEEDED FOR PAIN.*MAX 6 PER DAYMAY FILL ON OR AFTER 10/21/12*; Start Date: 12/11/2010 (Active) * Ferrous Sulfate 325 (65 Fe) MG Oral Tablet; Take 1 tablet twice daily; Start Date: 01/08/2011; End Date: (Active) * Aspir-81 81 MG Oral Tablet Delayed Release; TAKE 1 TABLET EVERY DAY; Start Date: 01/08/2011; End Date: (Active) * Lisinopril 10 MG Oral Tablet; TAKE 1 TABLET DAILY.; Start Date: 03/30/2011; End Date: (Active) * Escitalopram Oxalate 10 MG Oral Tablet; take 1 tablet by mouth every day; Start Date: 03/30/2011; End Date: (Active) * Fenofibrate 160 MG Oral Tablet; TAKE ONE TABLET BY MOUTH AT BEDTIME; Start Date: 05/28/2011; End Date: (Active) * Isosorbide Mononitrate ER 30 MG Oral Tablet Extended Release 24 Hour; 1QD - TAKE ONE TABLET BY MOUTH EVERY DAY; Start Date: 05/28/2011; End Date: 1899 (Active) * Omeprazole 40 MG Oral Capsule Delayed Release; TAKE ONE CAPSULE BY MOUTH EVERY DAY; Start Date: 08/02/2011 (Active) * Gabapentin 300 MG Oral Capsule; TAKE 1 CAPSULE 3 TIMES DAILY.; Start Date: ; End Date: (Active) * Pravastatin Sodium 40 MG Oral Tablet; TAKE 1 TABLET DAILY.; Start Date: 2011; End Date: (Active) * OxyCONTIN 30 MG Oral Tablet Extended Release 12 Hour; TAKE 1 BY MOUTH EVERY 12 HOURS.*MUST LAST 30 DAYSMAY FILL ON OR AFTER 10/30/12*; Start Date: 2011 (Active) * Metoprolol Succinate ER 50 MG Oral Tablet Extended Release 24 Hour; Take 1 tablet daily; Start Date: 04/07/2012; End Date: (Active) * Probiotic Oral Capsule; USE DIRECTED.; Start Date: 04/23/2012 (Active) * PARoxetine HCl 10 MG Oral Tablet; take one tablet by mouth every day; Start Date: 08/04/2012; End Date: (Active) * Benzonatate 100 MG Oral Capsule; TAKE 1 CAPSULE BY MOUTH FOUR TIMES DAILY NEEDED FOR COUGH; Start Date: 08/25/2012; End Date: (Active) * Colestipol HCl 1 GM Oral Tablet; TAKE 2 TABLET Bedtime if no sessation of diarrhea in 3 days, take two additional tablets at noon (for bile acid diarrhea) ; Start Date: 09/24/2012; End Date: (Active) * Xifaxan 550 MG Oral Tablet; Take 1 tablet twice daily; Start Date: 09/24/2012 ; End Date: (Active) * Metoclopramide HCl 10 MG Oral Tablet; TAKE 1 TABLET 30 MINUTES BEFORE MEALS AND AT BEDTIME.; Start Date: 09/30/2012; End Date: (Active) * Ciprofloxacin HCl 500 MG Oral Tablet; Take 1 tablet twice daily; Start Date: 10/20/2012; End Date: (Active) Allergies and Adverse Reactions * Morphine Derivatives (Active) Past Medical History * No Significant Medical History Procedures Procedure Procedure Date Date Completed Status Tonsillectomy - - Active Hernia Repair - - Active Shoulder Surgery - - Active Surgery Of Male Genitalia Vasectomy - - Active Back Surgery - - Active Complete Colonoscopy - - Active Heart Catheterization - Left 08/02/2010 - Active Gastroscopy With Biopsy 01/10/2011 - Active Complete Colonoscopy 01/23/2011 - Active ERCP With Insertion Of Tube Into Bile / Pancreatic Duct 01/30/2011 - Active ERCP With Endoscopic Sphincterotomy 01/30/2011 - Active ERCP With Balloon Dilation Of Ampulla/Biliary/Pancr Duct(S) 01/30/2011 - Active Laparoscopic Cholecystectomy With Cholangiography 02/07/2011 - Active Colonoscopy For Forceps Biopsy 03/26/2012 - Active Gastroscopy With Biopsy 03/28/2012 - Active Immunization * Influenza (Lot #: [id number]) - Administered on: 02/04/2012 * Pneumo (Pneumovax) (Lot #: [id number]) - Administered on: 02/04/2012 Family History * Family history of Diabetes Mellitus (V18.0); (Active) * Family history of Hypertension (V17.49); (Active) * Family history of Stroke Syndrome (V17.1); (Active) * Family history of Acute Myocardial Infarction (V17.3); (Active) * Family history of Reported Family History Of Kidney Disease (Active) * Family history of Epilepsy (Active) * Family history of Prostate Cancer (V16.42); (Active) * Family history of Reported Family History Of Alcoholism (Active) Social History * No History of Alcohol Use (Active) * Tobacco Use (305.1); (Active) Vital Signs Date Description Test Result 20 Oct 2012 10:42 AM recorded by: Rod Marie Weight 202 lb Temperature 97.8 F BP Systolic 162 mm[Hg] Pulse Regular Heart Rate 68 /min BP Diastolic 102 mm[Hg] Body Surface Area Calculated 1.94 Body Mass Index Calculated 35.79 Treatment Plan * CP Echo 02/11/2012 Routine Advance Directives * No Advance Directives available. Encounters * Appointment 10/20/2012 * RTNPT , Provider: Mimi Hutchison, Status: Pen , Time: 9:45 AM 2012
--- OUTSIDE RECORDS SUMMARY | 2016-08-27 23:57 | XMS REPORT | Continuity of Care Document ---
Author Author [facility] Organization [facility] Address Unknown Phone Unavailable Support Name Relationship Address Phone SAHRA JENKINS MD Caregiver [address] [place] [address] [place] [address] Unavailable SAHRA JENKINS MD Caregiver [address] [place] [address] [place] [address] Unavailable Obdulia ANDREWS MD Caregiver [address] [place] [address] Unavailable JOSLYN RUEDA MD Caregiver [address] [place] [address] [place] [address] Unavailable JEAN NIELSON Next Of Kin [address] [place] [address] Insurance Providers Guarantor KatheArsalanAfua L Address [address] [place] [address] Email DENIED/NO TO PORTAL Payer [facility] Policy Number [id number] Subscriber's Name Afua Archuleta Relationship 18 Self Effective Date 15 Expiration Date 15 Payer Medicare Policy Number [id number] Subscriber's Name Afua Archuleta Relationship 18 Self [...] - 99.1) 11/18/2015 4:16pm Temperature (Calculated Celsius) 36.77992 degrees C (36.0 - 37.3) 11/18/2015 4:16pm [...] by subsequent Troponin value, multiplied by 100) QE-Sdp-S-Type Natriuretic Peptide 170 PG/ML 0-175 11/18/2015 11:25am 12:07pm Rule in cut points: <50 years old=450; 50-75 years old=900; >75 years old=1800; When utilizing ProBNP rule-in cut points, adjustment for impaired renal function is typically not required. Magnesium Level 2.0 MG/DL 1.6-2.3 11/18/2015 11:25am 11/18/2015 11: 55am Thyroid Stimulating Hormone (TSH) 1.23 MIU/L 0.47-4.68 11/18/2015 11: 41am 11/18/2015 3:29pm Name: AFUA ARCHULETA Unit #: [id number] : [id number] Sex: M Admit Date: Loc / Svc: ED Discharge Date: DIAGNOSTIC IMAGING REPORT Report #: [id number] [facility] AMALIA [place] Indication: ITS.REASON: Right chest pain [...] Location Arrival/Admit Date Discharge/Depart Date Attending Provider Discharged Inpatient [facility] 11/18/15 1:07pm 11/18/15 6:23pm SAHRA JENKINS MD
--- OUTSIDE RECORDS SUMMARY | 2016-08-27 23:57 | XMS REPORT | Referral Summary ---
Author Author [facility] Organization [facility] Address Unknown Phone Unavailable Care Team Providers Care Hostel Parent Name Role Phone PROVIDER, NOTINSYSTEM Primary Care Physician Unavailable Encounter VC Date(s): 04/03/16 - 04/03/16 [facility] [address] [place] [address] [phone] Discharge Disposition: 01-Home or Self Care Attending Physician: Bi Rizvi MD Admitting Physician: Bi Rizvi MD Vital Signs Most recent to 1 oldest [Reference Range]: Temperature Oral 36.5 degC [35.8-37.3 degC] (04/03/16 1:12 PM) Peripheral Pulse 65 bpm Rate [60-100 bpm] (04/03/16 1:12 PM) Respiratory Rate 18 br/min [14-20 br/min] (04/03/16 1:12 PM) Blood Pressure 159/86 mmHg [90-140/60-90 mmHg] *HI* (04/03/16 1:12 PM) SpO2 98 % (04/03/16 1:12 PM) Problem List Condition Effective Dates Status Health Status Informant ETOH Active abuse(Confirmed) Anxiety(Confirmed) Active CAD (coronary artery Active disease)(Confirmed) Diverticulosis(Confi Active rmed) Hemorrhoids(Confirme Active d) Liver Active disease(Confirmed) Hypercholesteremia(C Active onfirmed) Hypertension(Confirm Active ed) Arthritis(Confirmed) Active Depression(Confirmed Active ) Allergies, Adverse Reactions, Alerts Substance Reaction Severity [...] Refill(s) Start Date: 04/03/16 Status: Ordered Linzess Oral, Daily, 0 Refill(s) Start Date: 04/03/16 Status: Ordered metoprolol tartrate 25 mg oral tablet 25 mg 1 tabs, Oral, BID, 0 Refill(s) Start Date: 04/03/16 Status: Ordered potassium chloride 20 mEq oral tablet, extended release 20 mEq 1 tabs, Oral, Daily, 0 Refill(s) Start Date: 04/03/16 Status: Ordered simvastatin 20 mg oral tablet 20 mg 1 tabs, Oral, Bedtime (once a day), 0 Refill(s) Start Date: 04/03/16 Status: Ordered Results No data available for this section Immunizations Vaccine Date Refusal Reason tetanus-diphth toxoids (Td) adult/adol 11/19/05 tetanus-diphth toxoids (Td) adult/adol 03/03/04 Procedures Procedure Date Related Diagnosis Body Site CABG x 1 - Coronary artery bypass graft x 11 10/30/15 AVR - Aortic valve replacement 10/29/14 Cardiac catheterization 2014 Cardiac pacemaker 08/10/[address] [place] Social History Social History Type Response Smoking Status Never smoker Assessment and Plan Extracted from: Title: KCCQ-12 Author: Zahira Cobb RN Date: 04/03/16 [place] Cardiomyopathy Questionnaire (KCCQ-12) The following questions refer to your heart failure and how it may affect your life. Please read and complete the following questions. There are no right or wrong answers. Please yary the answer that best applies to you. 1.Heart failure affects different people in different ways. Some feel shortness of breath while others feel fatigue. Please indicate how much you are limited by heart failure (shortness of breath or fatigue) in your ability to do the following activities over the past 2 weeks. Activity Extremely Limited Quite a bit Limited Moderately Limited Slightly Limited Not at all Limited Limited for other reasons or did not do the activity (1) (2) (3) (4) (5) (6) a. Showering/bathing [ ] [ ] [ ] [ ] [ x ] [ ] b. Walking 1 block on level ground [ ] [ ] [ x ] [ ] [ ] [ ] c. Hurrying or jogging (as if to catch a bus) [ ] [ ] [ x ] [ ] [ ] [ ] 2.Over the past 2 weeks, how many times did you have swelling in your feet, ankles or legs when you woke up in the morning? Every morning 3 or more times per week but not every day 1-2 times per week Less than once a week Never over the past 2 weeks (1) (2) (3) (4) (5) [ x ] [ ] [ ] [ ] [ ] 3.Over the past 2 weeks, on average, how many times has fatigue limited your ability to do what you wanted? All of the time Several times per day At least once a day 3 or more times per week but not every day 1-2 times per week Less than once a week Never over the past 2 weeks (1) (2) (3) (4) (5) (6) (7) [ ] [ x ] [ ] [ ] [ ] [ ] [ ] 4.Over the past 2 weeks, on average, how many times has shortness of breath limited your ability to do what you wanted? All of the time Several times per day At least once a day 3 or more times per week but not every day 1-2 times per week Less than once a week Never over the past 2 weeks (1) (2) (3) (4) (5) (6) (7) [ ] [ x ] [ ] [ ] [ ] [ ] [ ] 5.Over the past 2 weeks, on average, how many times have you been forced to sleep sitting up in a chair or with at least 3 pillows to prop you up because of shortness of breath? Every night 3 or more times per week but not every day 1-2 times per week Less than once a week Never over the past 2 weeks (1) (2) (3) (4) (5) [ ] [ ] [ ] [ ] [ x ] 6.Over the past 2 weeks, how much has your heart failure limited your enjoyment of life? It has extremely limited my enjoyment of life It has limited my enjoyment of life quite a bit It has moderately limited my enjoyment of life It has slightly limited my enjoyment of life It has not limited my enjoyment of life at all (1) (2) (3) (4) (5) [ ] [ ] [ x ] [ ] [ ] 7.If you had to spend the rest of your life with your heart failure the way it is right now, how would you feel about this? Not at all satisfied Mostly dissatisfied Somewhat satisfied Mostly satisfied Completely satisfied (1) (2) (3) (4) (5) [ x ] [ ] [ ] [ ] [ ] 8.How much does your heart failure affect your lifestyle? Please indicate how your heart failure may have limited your participation in the following activities over the past 2 weeks. Activity Severely Limited Limited quite a bit Moderately limited Slightly limited Did not limit at all Does not apply or did not do for other reasons (1) (2) (3) (4) (5) (6) a. Hobbies, recreational activities [ ] [ ] [ x ] [ ] [ ] [ ] b. Working or doing quality nurse [ ] [ ] [ x ] [ ] [ ] [ ] c. 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 mean is around 28 consistent with significant dysfunction. He will need cath by Dr. Cruz. Will do also TAVR CTA. will discuss with team regarding TAVR vs redo SAVR depending on CT results.
[2016-08-28 00:22] LABS: BASOPHILS # (AUTO) 0.1 T/MM3 (0-0.2); EOSINOPHILS # (AUTO) 0.2 T/MM3 (0-0.5); EOSINOPHILS % (AUTO) 3.1 % (0-4); HCT - HEMATOCRIT 42.4 % (41-53); HGB - HEMOGLOBIN 13.7 GM/DL (13.5-17.5); IMMATURE GRANULOCYTE # (AUTO) 0.02 T/MM3 (0.00-0.03); IMMATURE GRANULOCYTE % (AUTO) 0.3 % (0.0-0.5); LYMPHOCYTES # (AUTO) 2.2 T/MM3 (1-4.8); LYMPHOCYTES % (AUTO) 34.6 % (23-45); MEAN CORPUSCULAR HGB 28.1 UUG (26-34); MEAN CORPUSCULAR HGB CONC(MCHC 32.3 GM/DL (31-37); MEAN CORPUSCULAR VOLUME 86.9 UM3 (80-100); MEAN PLATELET VOLUME 10.9 UM3 (9.4-12.4); MONOCYTES # (AUTO) 0.5 T/MM3 (0-0.8); MONOCYTES % (AUTO) 7.9 % (0-9.0); NEUTROPHILS #(AUTO)-ABSOLUTE 3.3 T/MM3 (1.8-7.7); NEUTROPHILS % (AUTO) 53.1 % (33-66); RED BLOOD COUNT 4.88 M/MM3 (4.50-5.90); WBC - WHITE BLOOD COUNT 6.2 T/MM3 (4.5-11.0)
[2016-08-28 00:26] LABS: ALBUMIN 4.9 G/DL (3.5-5.0); ALBUMIN/GLOBULIN RATIO 1.5 RATIO (1.1-2.2); ALKALINE PHOSPHATASE 80 U/L (38-126); ALT (SGPT) 34 U/L (21-72); ANION GAP 20 MEQ/L (5-15); AST (SGOT) 40 U/L (17-59); BUN/CREATININE RATIO 25 RATIO (6-26); CALCIUM 9.6 MG/DL (8.4-10.2); CHLORIDE 102 MEQ/L (98-107); CO2 - CARBON DIOXIDE 23 MEQ/L (22-30); GLOMERULAR FILTRATION RATE 76; GLUCOSE 96 MG/DL (75-110); SODIUM 145 MEQ/L (134-144); TOTAL PROTEIN 8.1 G/DL (6.3-8.2)
--- NOTE | 2016-08-28 00:40 | NUR ---
IMAGING IN ROOM FOR PORTABLE CXR AT THIS TIME.
--- OUTSIDE RECORDS SUMMARY | 2016-08-28 00:42 | XMS REPORT | Continuity of Care Document ---
Author Author [facility] Organization [facility] Address Unknown Phone Unavailable Support Name Relationship Address Phone VALENTIN DOS SANTOS MD Caregiver [address] [place] [address] [place] [address] Obdulia ANDREWS MD Caregiver [address] [place], [place] [id number] [place], JEAN Next Of Kin [address] [place], [place] [address] CP Insurance Providers Payer Name Policy Number Subscriber Name Relationship Medicare [id number] Afua Archuleta 19 Self Jomar [employer] [id number] Afua Archuleta 19 Self Problems No known [...] F (96.8 - 99.1) Temperature (Calculated Celsius) 36.25016 degrees C (36.0 - 37.3) Pulse Rate [...] COMMENT WILL CALL WHEN PATIENT GETS HERE UO-Qfy-P-Type Natriuretic Peptide January 03, 2013 10:34am 21 PG/ML N 0- 175 Rule in cut points: <50 years old=450; 50-75 years old=900; >75 years old=1800; When utilizing ProBNP rule-in cut points, adjustment for impaired renal function is typically not required. Procedures No known history of procedures. Encounters Encounter Location Date/Time Departed Emergency Room [facility] 04/26/14 7:49pm Recent Diagnosis
[2016-08-28] MEDS ORDERED: BUME1TAB17 PO (00:46)
--- NOTE | 2016-08-28 01:10 | NUR ---
STATUS PT DENIES ANY NEEDS AT THIS TIME. PT DENIES ANY CP, REPORTS A SULLIVAN BUT REFUSES ANY PAIN MEDICATION.
--- NOTE | 2016-08-28 01:23 | NUR ---
PROVIDER DR GILBERT IN ROOM AT THIS TIME.
[2016-08-28] MEDS ORDERED: NORMAL SALINE 100 ML ONE (01:43)
[2016-08-28] MEDS ORDERED: IOHEXOL 350 MG/ML 75ml INJECTION ONE (01:43)
[2016-08-28] MEDS ORDERED: SALINE FLUSH 10ml SYRINGE ONE (01:44)
--- NOTE | 2016-08-28 01:50 | NUR ---
RADIOLOGY PT LEAVES WITH IMAGING STAFF AT THIS TIME.
[2016-08-28] MEDS ORDERED: NORMAL SALINE 500 ML IV ONE (02:15)
--- NOTE | 2016-08-28 02:25 | NUR ---
RETURN PT RETURNS TO ROOM AT THIS TIME, DENIES ANY NEEDS.
--- NOTE | 2016-08-28 03:06 | ERPDOC ---
Departure Disposition Decision Date: Aug 28, 2016 Disposition Decision Time: 03:04 Disposition: 07 AGAINST MEDICAL ADVICE Impression Impression Impression: Primary Impression: Chest pain Chest pain type: unspecified Qualified Codes: R07.9 - Chest pain, unspecified Additional Impression: Syncope Syncope type: unspecified Qualified Codes: R55 - Syncope and collapse Severity: Moderate Condition: Improved Seen By: Physician only Referrals: Obdulia ANDREWS MD (Family) 1 Day SAHRA JENKINS MD 1 Day Patient Instructions: Chest Pain (ED) Problems/Meds/Labs Reviewed?: Yes Medications reviewed and manag: Yes Follow up care ordered?: Yes Mental Status: Alert, Oriented HPI - General Medical General Chief Complaint: Chest Pain Stated Complaint: DIZZY,CP Time Seen by Provider: 00:05 Source: patient, family Exam Limitations: no limitations HPI - General Medical Initial Comments 61-year-old male presents to the emergency department following a syncopal episode with a chief complaint of chest discomfort. Patient experienced dull mild left-sided chest discomfort for approximately 15 minutes prior to be given a sublingual nitroglycerin tablet by EMS which resolved his symptoms. Patient was given full dose aspirin therapy by EMS as well. Patient denies any current pain or discomfort. Patient denies any other complaints or associated symptoms. He denies any trauma or injury. Patient was at home when the incident occurred. Incident was witnessed by his is present at bedside. Occurred At: home Onset: other (Resolved) Allergies: Coded Allergies: morphine (Verified Adverse Reaction, Unknown, nauseated, 08/28/16) Past History Past Medical History Metabolic: hypercholesterolemia, hypertension Cardiac: CAD, LA Respiratory: other, pneumonia Psychological: alcohol abuse Surgical History General: gallbladder, tonsils Cardiac: cardiac bypass, cardiac cath Joint: shoulder Family History Family PMH: FOUND: LA, diabetes Vaccines Hx Influenza Vaccination: Yes (2016) Hx Pneumococcal Vaccination: Yes (2016) Social History Smoking Status: Never smoker Substance Use Type: does not use Alcohol Intake: none Review of Systems Constitutional Constitutional: DENIES: chills, fever Eyes General: DENIES: erythema, exudate Lids/Accessories: DENIES: erythema, swelling Vision: DENIES: acuity, blurring ENMT Ears: DENIES: drainage, erythema Hearing: DENIES: hearing loss Balance: DENIES: ataxia, falling to one side Sinuses: DENIES: congestion, pain Nose: DENIES: nosebleeds, pain Mouth/Throat: DENIES: painful swallowing, sore throat Teeth: DENIES: pain Jaw: DENIES: pain Cardiovascular Cardiac: chest pain (resolved), DENIES: dyspnea on exertion Rhythm/Rate: DENIES: irregular beat, palpitations Vascular: DENIES: pedal edema, unilateral swelling Pulmonary Respiratory: DENIES: cough, dyspnea, pleuritic chest pain, sputum GI Upper Abdomen: DENIES: nausea, pain, vomiting Lower Abdomen: DENIES: diarrhea, pain General: DENIES: dysuria, frequency Musculoskeletal General: DENIES: joint pain, tenderness Integumentary Skin: DENIES: itching, rash Neurological General: DENIES: headache, numbness, weakness Psychiatric Psychiatric: DENIES: emotional instability, suicidal ideation/attempt Endocrine Endocrine: DENIES: polydipsia, polyphagia Hematologic/Lymphatic Hematologic/Lymphatic: DENIES: frequent nosebleeds, lymphadenopathy Allergic/Immunological Allergic/Immunoligical: DENIES: allergic reactions, hives Physical Exam General General Nourishment: well nourished, well developed, appears stated age, no acute distress, adult General Body Habitus: well groomed Vitals and Pain First Documented Vital Signs Date Time Temp Pulse Resp B/P Pulse Ox O2 Delivery O2 Flow Rate FiO2 08/27/16 23:55 97.4 80 16 161/71 95 Room Air Weight: Kilograms: Height (feet): 5 Height (inches): 3.00 Triage Pain Scale: RN VS reviewed by Provider: Yes Normal Exams: Head: Normocephalic w/o trauma Eyes: Pupils are PERRLA w/ EOMI, No scleral icterus, irritation, or foreign bodies noted ENMT: No facial trauma, nasal exudates, pharyngeal erythema, or exudates are noted Dental: No fractured, loose, or missing teeth noted Neck: Full range of motion, without adenopathy, JVD, bruits or thyromegaly Chest/Resp: Clear all charles, with good airflow, and symmetry bilaterally CV: Regular rate and rhythm, without murmur or gallop, Pulses 2+ all extremities, capillary refill, <2 seconds all ext., no pedal edema noted Abdomen: Bowel sounds positive, soft, non-tender, non-distended, no hepatosplenomegaly, masses or bruits noted Lymphatic: No lymphadenopathy, or lymphedema noted Musculoskeletal: No tenderness, or deformity noted, good range of motion, all extremities Integumentary: No rashes, hives, or bruising noted, hair and nails, without abnormality Neurologic: Patient is alert, and oriented, cranial nerves, motor/sensory/ cerebellar, exams w/o gross deficits, to observation Psychiatric: Patient exhibits, appropriate attention, emotion and affect Neck (brief) Neck: NOT FOUND: tenderness Differential Diagnoses Considering: Acute LA, Metabolic, Pulmonary Embolus, Other (syncope) Progress Results/Orders Orders Procedure Category Date Status Time Cbc W/Auto LAB 08/28/16 Complete Diff-Reflex Manual Cmp - Comprehensive LAB 08/28/16 Complete Metabolic Troponin I W LAB 08/28/16 Complete Hemolysis Index EKG EKG 08/28/16 Taken Chest 1 View RAD 08/28/16 Taken 00:[address] 08/28/16 Taken 01:23 Ct Head W/O Contrast CT 08/28/16 Taken 01:23 Ct Cervical Spine W/O CT 08/28/16 Taken Contrast 01:23 Probnp LAB 08/28/16 Complete 01:24 Iohexol (Omnipaque) PHA 08/28/16 Complete 01:43 Normal Saline (Ns) PHA 08/28/16 Complete 01:43 Saline Flush (Iv PHA 08/28/16 Complete Flush) 01:44 Normal Saline (Ns) PHA 08/28/16 Complete 02:15 Lab Results Laboratory Tests Test 08/28/16 00:10 White Blood Count 6.2T/MM3 Red Blood Count 4.88M/MM3 Hemoglobin 13.7GM/DL Hematocrit 42.4% Mean Corpuscular Volume 86.9UM3 Mean Corpuscular Hemoglobin 28.1UUG Mean Corpuscular Hemoglobin Concent 32.3GM/DL RDW Standard Deviation 42.9FL Platelet Count 175T/MM3 Mean Platelet Volume 10.9UM3 Immature Granulocyte % (Auto) 0.3% Neutrophils (%) (Auto) 53.1% Lymphocytes (%) (Auto) 34.6% Monocytes (%) (Auto) 7.9% Eosinophils (%) (Auto) 3.1% Basophils (%) (Auto) 1.0% Absolute Immature Granulocyte (auto 0.02T/MM3 Absolute Neutrophils (auto) 3.3T/MM3 Absolute Lymphocytes (auto) 2.2T/MM3 Absolute Monocytes (auto) 0.5T/MM3 Absolute Eosinophils (auto) 0.2T/MM3 Absolute Basophils (auto) 0.1T/MM3 Turbidity < 20 Sodium Level 145MEQ/L Potassium Level 4.0MEQ/L Chloride Level 102MEQ/L Carbon Dioxide Level 23MEQ/L Anion Gap 20MEQ/L Blood Urea Nitrogen 25.0MG/DL Creatinine 1.0MG/DL Glomerular Filtration Rate Calc 76 BUN/Creatinine Ratio 25RATIO Glucose Level 96MG/DL Calculated Osmolality 283MOSM/KG Calcium Level 9.6MG/DL Total Bilirubin 1.40MG/DL Icterus Index < 2 Aspartate Amino Transf (AST/SGOT) 40U/L Alanine Aminotransferase (ALT/SGPT) 34U/L Alkaline Phosphatase 80U/L Troponin I < 0.012ng/ml DV-Kxv-M-Type Natriuretic Peptide 596PG/ML Total Protein 8.1G/DL Albumin 4.9G/DL Globulin 3.2G/DL Albumin/Globulin Ratio 1.5RATIO Chemistry Specimen Hemolysis 23 Medications Current ED Medications Iohexol 1 bottle 1 bottle STK-MED ONCE .ROUTE ; Start 08/28/16 at 01:43; Stop at 01:44; Status DC Sodium Chloride (NS) 100 ml @ As Directed STK-MED ONCE .ROUTE ; Start 08/28/16 at 01:43; Stop 08/28/16 at 01:44; Status DC Sodium Chloride 10 ml 10 ml STK-MED ONCE .ROUTE ; Start 08/28/16 at 01:44; Stop 08/28/16 at 01:45; Status DC Sodium Chloride (NS) 500 ml @ 999 mls/hr Q31M ONCE IV Last administered on t 02:52; Start 08/28/16 at 02:15; Stop 08/28/16 at 02:45; Status DC Progress Progress Labs / imaging were discussed in detail with the patient and family and questions are answered. Patient is given IV hydration. Patient is recommended to undergo admission to the hospital but he declines. Patient requests to sign out AGAINST MEDICAL ADVICE. Patient is aware of this and that signing out AGAINST MEDICAL ADVICE could result in and/or permanent disability. Patient verbalizes agreement and understanding. Patient signed the AMA form and leaves the emergency department at this time. Patient is clinically sober at the time of signing out AGAINST MEDICAL ADVICE from the hospital. Patient undergoes a repeat attempt at counseling in order to convince him to stay and and undergo further evaluation and treatment which he declines. Patient is to follow-up with his office support specialist (Dr. Jenkins) as soon as possible. Patient is to return to the emergency department if his condition worsens or changes in any manner. Patient is instructed that he is able to return to the emergency department at any time if he changes his mind and wishes to be re-evaluated or if his condition worsens or changes in any manner. Patient verbalizes agreement and understanding. Patient says AMA form and leaves emergency department at this time. Patient is to return to the ED if his condition worsens or changes in any manner. CT HEAD/C-Spine: Negative. EKG EKG : Rate: 60-100 Rhythm: sinus Clayton: normal QRS: normal Intervals: normal ST/T: normal Interpreted by: signing physician CT CT : CT: Chest IV contrast Interpretation: Normal, Faxed Report MERRY GILBERT DO Aug 28, 2016 03:06
[2016-08-28 03:19] VITALS: BP 141/64; PULSE 74; RESP 21; O2SAT 97
--- NOTE | 2016-08-28 03:19 | NUR ---
AMA AFTER SPEAKING WITH PROVIDER, PT DECIDES HE WANTS TO LEAVE AT THIS TIME. PT REPORTS HE DOES NOT WANT TO STAY FOR OBSERVATION OVER NIGHT AND THAT HE WANTS TO GO HOME NOW. PT IS EXPLAINED RISKS AND SIGNS AMA FORM LEAVING AMBULATORY WITH HIS . PT DENIES ANY CP OR SOA AT THIS TIME. PT DENIES DIZZINESS AND AMBULATES WITH A STEADY GAIT.
--- NOTE | 2016-08-28 08:04 | DI ---
Indication: ITS.REASON: fall, head pain PROCEDURE: CT HEAD W/O CONTRAST: Encounter: Initial Comparison: January 03, 2013 Technique: Axial CT images through the head were performed without contrast. Iterative Reconstruction dose reducing technique was utilized. FINDINGS: The ventricles are of normal size, shape, and configuration for the patient's age. There is no evidence of acute intracranial hemorrhage, midline displacement, or mass effect. There are scattered areas of low attenuation in the white matter which most likely represent changes of chronic microvascular ischemia. The CT attenuation of the brain parenchyma is otherwise normal within the cerebellum, brain stem, and cerebral hemispheres. The tympanic cavities and mastoid air cells are free of appreciable disease. There are no definite fractures of the skull base, calvarium, or visualized portion of the midface. IMPRESSION: No CT evidence of acute traumatic intracranial injury. There is a preliminary report by virtual radiologic. .
--- NOTE | 2016-08-28 08:05 | DI ---
Indication: ITS.REASON: fall, neck pain PROCEDURE: CT CERVICAL SPINE W/O CONTRAST: Encounter: Initial Comparison: None Technique: Axial CT images through the cervical spine were performed without contrast. Coronal and sagittal reformatted images were also obtained. Automated Exposure Control and Iterative Reconstruction dose reducing techniques were utilized. FINDINGS: The alignment of the cervical spine is normal. Multilevel degenerative changes are present. There is no evidence of acute fracture or subluxation of the cervical spine. The facet joints are well aligned with preservation of the intervertebral disk and facet joints. The atlantoaxial articulation, dens, and upper cervical spine demonstrate no subluxation. There is no evidence of significant spinal stenosis, foraminal compromise, or significant disk herniation. The paraspinal soft tissues and spinal canal appear unremarkable. IMPRESSION: No acute traumatic abnormality of the cervical spine. There is a preliminary report by virtual radiologic. .
--- NOTE | 2016-08-28 08:08 | DI ---
Indication: ITS.REASON: sob, pain PROCEDURE: CTA PULMONARY EMBOLI: Encounter: Initial Comparison: None Technique: Axial CT pulmonary angiographic phase images were performed through the chest after the administration of intravenous contrast. Coronal and Sagittal MIP reconstructed images were created and reviewed. Automated Exposure Control and Iterative Reconstruction dose reducing techniques were utilized. Contrast: Omnipaque 350 60 mL Findings: Pulmonary arteries: Exam is diagnostic to the subsegmental pulmonary arterial level. No filling defects identified to confirm a pulmonary embolus. Other findings: Right posterior diaphragmatic defect containing herniated fat. No focal consolidative pneumonia, pleural effusion or pneumothorax. 5 mm noncalcified right lower lobe pulmonary nodule which does not require specific follow-up. Central airways are patent. No axillary or mediastinal adenopathy. Small pericardial effusion. Prior CABG with left cardiac pacemaker. The upper abdomen shows no acute findings. Impression: No pulmonary embolus. There is a preliminary report by virtual radiologic. .
--- NOTE | 2016-08-28 08:13 | DI ---
Indication: ITS.REASON: Chest pain and shortness of breath with dizziness tonight PROCEDURE: CHEST 1 VIEW: Encounter: Initial Comparison: July 25, 2016 Findings: Prior pleural effusions have decreased and nearly resolved. The lungs are stable in appearance without new focal airspace consolidation. There is no pneumothorax. The heart size, pulmonary vascularity and mediastinal contours are unchanged. Prior CABG. Left cardiac pacemaker. IMPRESSION: No acute cardiopulmonary disease. .
== END 2016-08-28 03:19 | disposition left against medical advice (07) ==
LOC: ED 23:51
DX: R07.89 Other chest pain (principal); R42 Dizziness and giddiness; R55 Syncope and collapse; I10 Essential (primary) hypertension; I25.10 Atherosclerotic heart disease of native coronary artery without angina pectoris
CPT/HCPCS: 70450; 71010; 71275; 72125; 80053; 83880; 84484; 85025; 93005; 99284; J7050; Q9967